=== PATIENT | female | born 1970 | race Caucasian/White ===

== ENCOUNTER 2017-04-23 16:25 | Emergency (ER) | payer BC ==
[~2017-04-23] VITALS: Ht 160 cm; Wt 52.2 kg
[2017-04-23 16:45] VITALS: BP 158/85
== END 2017-04-24 01:21 | disposition left against medical advice (07) ==
LOC: ER 16:29
DX: M25.511 Pain in right shoulder (principal); Z53.21 Procedure and treatment not carried out due to patient leaving prior to being seen by health care provider
CPT/HCPCS: 73030